=== PATIENT | female | born 2000 | race American Indian/Alaskan Native ===

== ENCOUNTER 2019-02-22 00:43 | Emergency (ER) | payer OTHER ==
[2019-02-22] MEDS ORDERED: KETOROLAC 60 MG/2 ML INJ IM ONE (02:46)
--- NOTE | 2019-02-22 03:51 | XRay Report ---
CHEST 2 VIEWS INDICATION: productive cough fever. COMPARISON: FINDINGS: Support devices: None. Heart: Within normal limits. Lungs: No acute air space or interstitial disease. Pleura: No significant pleural effusion. No pneumothorax. Additional findings: None. IMPRESSION: 1. No acute findings. Signer Name: Blake Delcid MD Signed: 02/22/2019 3:46 AM Workstation Name: [id number]
--- NOTE | 2019-02-22 04:07 | Emergency Department Report ---
ED General Adult HPI - General Chief complaint: Extremity Injury, Upper Stated complaint: COUGH, FEVER, COLD SYMPTOMS Time Seen by Provider: 02/22/19 02:36 Source: patient Mode of arrival: Ambulatory Limitations: No Limitations - History of Present Illness Initial comments: Patient 18-year-old Anastacia female who is presenting with generalized il lness. Patient states that for the past 2-3 days she's had cough fever and congestion and weakness. Patient denies nausea vomiting diarrhea next stiffness or sore throat. Patient states MAXIMUM TEMPERATURE is 103. Patient has a mild headache as well as she states is 8 out of 10 in severity. Severity scale (0 -10): 6 - Related Data Previous Rx's Medication Instructions Recorded Last Taken Type Benzonatate [Tessalon Perles] 100 mg PO Q8HR #10 capsule 02/22/19 Unknown Rx Fluticasone [Flonase] 1 spray NS QDAY #1 bottle 02/22/19 Unknown Rx Ibuprofen [Motrin 600 MG tab] 600 mg PO Q8H PRN #20 tablet 02/22/19 Unknown Rx predniSONE [Deltasone] 20 mg PO QDAY #5 tab 02/22/19 Unknown Rx Allergies Allergy/AdvReac Type Severity Reaction Status Date / Time No Known Allergies Allergy Unverified 02/22/19 03:38 ED Review of Systems ROS: Stated complaint: COUGH, FEVER, COLD SYMPTOMS Other details as noted in HPI Comment: All other systems reviewed and negative ED Past Medical Hx - Past Medical History Previous Medical History?: Yes Additional medical history: Anemic - Surgical History Past Surgical History?: Yes Additional Surgical History: tonsilectomy - Social History Smoking Status: Current Some Day Smoker Substance Use Type: Marijuana - Medications Home Medications: Home Medications Medication Instructions Recorded Confirmed Last Taken Type Benzonatate [Tessalon Perles] 100 mg PO Q8HR #10 capsule 02/22/19 Unknown Rx Fluticasone [Flonase] 1 spray NS QDAY #1 bottle 02/22/19 Unknown Rx Ibuprofen [Motrin 600 MG tab] 600 mg PO Q8H PRN #20 tablet 02/22/19 Unknown Rx predniSONE [Deltasone] 20 mg PO QDAY #5 tab 02/22/19 Unknown Rx ED Physical Exam - General Limitations: No Limitations General appearance: alert, in no apparent distress - Head Head exam: Present: atraumatic, normocephalic, other (no reproducible sinus tenderness) - Eye Eye exam: Present: normal appearance, PERRL, EOMI - ENT ENT exam: Present: mucous membranes moist - Neck Neck exam: Present: normal inspection - Respiratory Respiratory exam: Present: normal lung sounds bilaterally, rhonchi. Absent: respiratory distress, wheezes, rales - Cardiovascular Cardiovascular Exam: Present: normal rhythm, tachycardia, normal heart sounds. Absent: systolic murmur, diastolic murmur, rubs, gallop - GI/Abdominal GI/Abdominal exam: Present: soft, normal bowel sounds. Absent: distended, tenderness, guarding, rebound - Extremities Exam Extremities exam: Present: normal inspection - Back Exam Back exam: Present: normal inspection - Neurological Exam Neurological exam: Present: alert, oriented X3 - Psychiatric Psychiatric exam: Present: normal affect, normal mood - Skin Skin exam: Present: warm, dry, intact, normal color. Absent: rash ED Course Vital Signs 02/22/19 01:15 Temperature 99.0 F Pulse Rate 147 H Respiratory 20 Rate Blood Pressure 149/77 O2 Sat by Pulse 100 Oximetry ED Medical Decision Making - Radiology Data Radiology results: report reviewed (CXR WNL) - Medical Decision Making Patient is 18 Anast[place] female who presented with cough and congestion fever and tachycardia. Because of the 5 fever and tachycardia x-ray was taken to rule out pneumonia. X-ray was inconsistent with an acute pneumonia. Patient treated as an acute bronchitis be discharged home with medication for symptomatically. Critical care attestation.: If time is entered above; I have spent that time in minutes in the direct care of this critically ill patient, excluding procedure time. ED Disposition Clinical Impression: Acute bronchitis Disposition: TO HOME OR SELFCARE Is pt being admited?: No Does the pt Need Aspirin: No Condition: Stable Instructions: Acute Bronchitis (ED) Referrals: PRIMARY CARE, [Primary Care Provider] - 3-5 Days Time of Disposition: 04:09
[2019-02-22 04:15] VITALS: BP 134/78
== END 2019-02-22 04:16 | disposition home or self-care (01) ==
LOC: ED 00:43
DX: J20.9 Acute bronchitis, unspecified (principal); D64.9 Anemia, unspecified; F17.200 Nicotine dependence, unspecified, uncomplicated; F12.10 Cannabis abuse, uncomplicated; Z90.89 Acquired absence of other organs; Z79.899 Other long term (current) drug therapy
CPT/HCPCS: 71046; 96372; 99283; J1885